=== PATIENT | female | born 1975 | race African-American/Black ===

== ENCOUNTER 2020-11-22 03:38 | Emergency (ER) | payer MEDICAID, OTHER ==
[~2020-11-22] VITALS: Ht 162.6 cm; Wt 79.4 kg
[~2020-11-22 03:38] MED LIST: ONDANSETRON ODT4 MG PO
--- NOTE | 2020-11-22 03:54 | NUR ---
ED Nurse Note: pt has complaints of HTN says home blood pressure in 200s, per pt no other health conditions c/o nausea, chest pain, and fatigue since saturday recently prescribed HTN medication norvasc
--- NOTE | 2020-11-22 04:07 | Emergency Room Report ---
History of Present Illness General Chief Complaint: Hypertension Source: Patient Present Illness HPI This a 45-year-old female with a history of hypertension. She said that blood pressure has been high since September. She tried dietary changes and it helped a little bit. But in the last week she has been having increasing dizziness and headache. Also with chest tightness and shortness of breath. She went to urgent care yesterday and her blood pressure was elevated again. They started her on Norvasc. She presents tonight with chief complaint of high blood pressure. She said she felt lightheaded and dizzy. Also with headache and tightness in her chest. Also with shortness of breath. She took her blood pressure and it was 200/120. She also says she has been urinating a lot in the last 2 weeks. Allergies: Coded Allergies: No Known Allergies (Unverified , 11/22/20) COVID-19 Screening Contact w/high risk pt: No Experienced COVID-19 symptoms?: No COVID-19 Testing performed [employer]: No Patient History Past Medical History: see triage record, old chart reviewed, HTN Past Surgical History: none Pertinent Family History: none Social History: Denies: smoking Now: No Immunizations: other Reviewed Nursing Documentation: PMH: Agreed; PSxH: Agreed Review of Systems Eye: Denies: eye pain, blurred vision ENT: Denies: ear pain, nose congestion, throat swelling Respiratory: Reports: shortness of breath; Denies: cough Cardiovascular: Denies: chest pain, palpitations Gastrointestinal: Denies: abdominal pain, diarrhea, nausea, vomiting Musculoskeletal: Denies: back pain, joint pain Skin: Denies: rash Neurological: Reports: headache; Denies: numbness Endocrine: Reports: increased urine; Denies: increased thirst Hematologic/Lymphatic: Denies: easy bruising All Other Systems: negative except mentioned in HPI Physical Exam Vital Signs Date Time Temp Pulse Resp B/P (MAP) Pulse Ox O2 Delivery O2 Flow Rate FiO2 11/22/20 03:47 99.0 93 20 160/92 (114) 100 Room Air Vitals with high blood pressure Sp02 EP Interpretation: reviewed, normal General Appearance: well appearing, no apparent distress, alert Head: normocephalic, atraumatic Eyes: bilateral eye PERRL, bilateral eye EOMI ENT: hearing grossly normal, normal pharynx Neck: full range of motion, supple, no meningismus Respiratory: chest non-tender, lungs clear, normal breath sounds Cardiovascular #1: regular rate, rhythm, no murmur Gastrointestinal: normal bowel sounds, non tender, no mass, no organomegaly, no bruit, non-distended Musculoskeletal: back normal, normal range of motion, gait/station normal Psychiatric: mood/affect normal Medical Decision Making Diagnostic Impression: Primary Impression: Hypertension Qualified Codes: I10 - Essential (primary) hypertension ER Course Patient presents with high blood pressure. There is no evidence of endorgan damage. She has no focal deficit. Her troponin is negative. No evidence of kidney damage. [place] better now. Will discharge home. EKG Diagnostic Results Troponin ordered: Yes Rate: normal Rhythm: NSR ST Segments: other - Nonspecific ST changes Rhythm Strip Diag. Results EP Interpretation: yes Rate: 77 Rhythm: NSR, no PVC's, no ectopy Chest X-Ray Diagnostic Results Chest X-Ray Diagnostic Results : Chest X-Ray Ordered: Yes # of Views/Limited/Complete: 1 View Indication: Chest Pain EP Interpretation: Yes Interpretation: no consolidation, no effusion, no pneumothorax, no acute cardiopulmonary disease Impression: No acute disease Electronically Signed by: Cirilo García MD Last Vital Signs Date Time Temp Pulse Resp B/P (MAP) Pulse Ox O2 Delivery O2 Flow Rate FiO2 11/22/20 04:01 90 18 Room Air 11/22/20 03:47 99.0 160/92 (114) 100 Status: improved Disposition: HOME, SELF-CARE Condition: Stable Scripts Atenolol* (TENORMIN*) 50 Mg Tablet 50 MG ORAL DAILY, #90 TAB Prov: Cirilo García MD 11/22/20 Additional Instructions: Follow-up your doctor in 1 to 2 weeks for recheck. Return if symptoms worsen. Cirilo García MD Nov 22, 2020 04:07
[2020-11-22 04:22] LABS: APPEARANCE,URINE CLEAR; BILIRUBIN, URINE NEGATIVE (NEGATIVE); COLOR,URINE PALE YELLOW; GLUCOSE, URINE (UA) NEGATIVE (NEGATIVE); KETONES,URINE NEGATIVE (NEGATIVE); LEUKOCYTE ESTERASE ,URINE NEGATIVE (NEGATIVE); NITRITE,URINE NEGATIVE (NEGATIVE); PH,URINE 7 (4.5-8.0); PROTEIN,URINE NEGATIVE (NEGATIVE); UROBILINOGEN,URINE NORMAL MG/DL (0.0-1.0)
[2020-11-22 04:36] LABS: BASOPHILS % (AUTO) 1.6 % (0.0-2.0); EOSINOPHILS % (AUTO) 3.2 % (0.0-3.0); HEMATOCRIT 46.6 % (37.0-47.0); LYMPHOCYTES % (AUTO) 35.3 % (20.0-45.0); MEAN CORPUSCULAR VOLUME 87 FL (80-99); MONOCYTES % (AUTO) 7.6 % (1.0-10.0); NEUTROPHILS % (AUTO) 52.4 % (45.0-75.0); PLATELET COUNT 265 K/UL (150-450); RED BLOOD COUNT 5.34 M/UL (4.20-5.40); RED CELL DISTRIBUTION WIDTH 12.4 % (11.6-14.8); WHITE BLOOD COUNT 6.2 K/UL (4.8-10.8)
[2020-11-22 04:52] LABS: ANION GAP 10 mmol/L (5-15); BLOOD UREA NITROGEN 10 mg/dL (7-18); CALCIUM 9.3 MG/DL (8.5-10.1); CARBON DIOXIDE 25 MMOL/L (21-32); CHLORIDE 107 MMOL/L (98-107); POTASSIUM 3.8 MMOL/L (3.5-5.1); SODIUM 142 MMOL/L (136-145)
[2020-11-22 05:03] LABS: ALANINE AMINOTRANSFERASE 23 U/L (12-78); ALBUMIN 3.9 G/DL (3.4-5.0); ALKALINE PHOSPHATASE 85 U/L (46-116); ASPARTATE AMINO TRANSFERASE 22 U/L (15-37); BILIRUBIN,TOTAL 0.4 MG/DL (0.2-1.0)
[2020-11-22] MEDS ORDERED: TENORMIN50 MG ORAL (05:31)
[2020-11-22 05:43] VITALS: BP 140/88
--- NOTE | 2020-11-22 05:45 | NUR ---
Patient was discharge home as EDP ordered. All vital signs were taken within normal range. Patient . All prescriptions and instructions were given to the patient . Patient verbalized understanding. patient left the hospital in stable condition .
--- NOTE | 2020-11-22 12:00 | Cardiology Report ---
APPROVED REPORT EKG Measurement Heart [id number] <Conclusion> Sinus rhythm with 1st degree AV block Nonspecific T wave abnormality Abnormal ECG
--- NOTE | 2020-11-22 16:04 | Diagnostic Imaging Report ---
Procedure: XRAY Chest 1v Reason for study: Reason For Exam: SOB Comparison films: None. FINDINGS: A single one view chest is obtained. Vascularity is normal. The lung eddy are clear bilaterally. Cardiac and mediastinal silhouette are within normal limits. CP angles are sharp. The bony thorax appear unremarkable. IMPRESSION: NO ACUTE CARDIOPULMONARY DISEASE.
== END 2020-11-22 05:46 | disposition home or self-care (01) ==
LOC: EMR 04:05
DX: I10 Essential (primary) hypertension (principal); R06.02 Shortness of breath; R42 Dizziness and giddiness; R51.9 Headache, unspecified
CPT/HCPCS: 36415; 71045; 80053; 81001; 83880; 84484; 84702; 85025; 93005; 96361; 96374; J0360; J7030; Z7502; 99284